=== PATIENT | female | born 1955 | race Caucasian/White ===

== ENCOUNTER 2018-05-24 12:34 | Emergency (ER) | payer MEDICAID, OTHER ==
[2018-05-24 12:51] VITALS: BMI 31.1
[2018-05-24 12:54] VITALS: BP 103/70; PULSE 90; TEMP 98.5; O2SAT 97
[2018-05-24] MEDS ORDERED: Enoxaparin 40 mg Syringe SC STA (13:13)
--- NOTE | 2018-05-24 13:16 | C.PDOC ---
History Of Present Illness 62 year old female presents to the ER with a complaint of new onset bilateral leg swelling since yesterday. Denies trauma, chest pain, SOB, KENNEDY, or PMHx. NEW ONSET B/L LEG SWELLING SINCE YEST. NO TRAUMA. DENIES CP, SOB, KENNEDY. DENIES PMH EXAM NAD NONTOXIC EXT MIN R>L LOWER LEG SWELL NONPITTING NONTEND. NO PALP MASS SKIN WNL REMAINDER NEG Time Seen by Provider: 05/24/18 13:09 Chief Complaint (Nursing): Lower Extremity Problem/Injury History Per: Patient History/Exam Limitations: no limitations Onset/Duration Of Symptoms: Days Current Symptoms Are (Timing): Still Present Recent travel outside of the [place]: No Past Medical History Reviewed: Historical Data, Nursing Documentation, Vital Signs Vital Signs: Last Vital Signs Temp 98.5 F 05/24/18 12:51 Pulse 90 05/24/18 12:51 Resp 18 05/24/18 12:51 BP 103/70 05/24/18 12:51 Pulse Ox 97 05/24/18 16:11 - Medical History PMH: No Chronic Diseases Surgical History: No Surg Hx Family History: States: Unknown Family Hx - Social History Hx Tobacco Use: No Hx Alcohol Use: No Hx Substance Use: No - Immunization History Hx Tetanus Toxoid Vaccination: No Hx Influenza Vaccination: No Hx Pneumococcal Vaccination: No Review Of Systems Except As Marked, All Systems Reviewed And Found Negative. Cardiovascular: Negative for: Chest Pain Respiratory: Negative for: Shortness of Breath, SOB with Excertion Musculoskeletal: Positive for: Other (Bilateral leg swelling) Physical Exam - Physical Exam Appears: Non-toxic, No Acute Distress Skin: Normal Color, Warm, Dry Head: Atraumatic, Normacephalic Eye(s): bilateral: Normal Inspection Oral Mucosa: Moist Chest: Symmetrical, No Tenderness Cardiovascular: Rhythm Regular Respiratory: Normal Breath Sounds, No Rales, No Rhonchi, No Wheezing Extremity: Normal ROM (x4), Capillary Refill (<2 seconds), Other (Minimal right greater than left lower leg swelling nonpitting and nontender. No palpable mass. ) Pulses: Left Dorsalis Pedis: Normal, Right Dorsalis Pedis: Normal Neurological/Psych: Oriented x3, Normal Speech, Normal Motor, Normal Sensation Gait: Steady ED Course And Treatment O2 Sat by Pulse Oximetry: 97 Progress - Re-Evaluation Re-evaluation Note: 05/24/18 16:11 POSSIBLE PT [facility]. NO RESPONSE VASC LAB. NO STUDY IN [facility] CONTACT NUMBER IN CHART DISCONNECTED. Disposition - Disposition Disposition: ELOPEMENT - ER ONLY Disposition Time: 16:13 Condition: UNKNOWN Forms: [facility] (Maltese) - Clinical Impression Clinical Impression: Leg swelling - Scribe Statement The provider has reviewed the documentation as recorded by the Scribe Rafael Herrera All medical record entries made by the Scribe were at my direction and personally dictated by me. I have reviewed the chart and agree that the record accurately reflects my personal performance of the history, physical exam, medical decision making, and the department course for this patient. I have also personally directed, reviewed, and agree with the discharge instructions and disposition.
[2018-05-24 16:16] VITALS: RESP 16
== END 2018-05-24 16:14 | disposition left against medical advice (07) ==
LOC: C.ER 12:34
DX: M79.89 Other specified soft tissue disorders (principal)
CPT/HCPCS: 96372; 99283; J1885

== ENCOUNTER 2018-07-02 11:30 | Emergency (ER) | payer OTHER ==
[2018-07-02 11:30] VITALS: BMI 31.1
[2018-07-02 11:44] VITALS: TEMP 98
--- NOTE | 2018-07-02 12:55 | VASCLAB ---
Date of service: 07/02/2018 PROCEDURE: Right Lower Extremity Venous Duplex Exam. HISTORY: right calf pain r/o DVT PRIORS: None. TECHNIQUE: Right common femoral, femoral, popliteal and posterior tibial, peroneal and great saphenous veins were evaluated. Flow was assessed with color Doppler, compressibility, assessment of phasic flow and augmentation response. Report prepared by LUIS ANTONIO Cage, RVT FINDINGS: RIGHT: 1. Common Femoral Vein: 1.1. Compressibility - Fully compressible: Thrombus - None: Flow - Phasic: Augmentation -Normal: Reflux - None. 2. Femoral Vein: 2.1. Compressibility - Fully compressible: Thrombus - None: Flow - Phasic: Augmentation -Normal: Reflux - None. 3. Popliteal Vein: 3.1. Compressibility - Fully compressible: Thrombus - None: Flow - Phasic: Augmentation -Normal: Reflux - None. 4. Posterior Tibial Vein: 4.1. Compressibility - Fully compressible: Thrombus - None: Flow - Phasic: Augmentation -Normal: Reflux - None. 5. Peroneal Vein: 5.1. Compressibility - Fully compressible: Thrombus - None: Flow - Phasic: Augmentation -Normal: Reflux - None. 6. Great Saphenous Vein: 6.1. Compressibility - Fully compressible: Thrombus -None: Flow - Phasic: Augmentation - Normal: Reflux - None. OTHER FINDINGS: IMPRESSION: No evidence of deep or superficial vein thrombosis of the right lower extremity with excellent venous flow. Normal valve function noted of the right side. Normal venous flow noted in the left common femoral vein.
[2018-07-02 13:36] VITALS: BP 112/79; PULSE 81; RESP 16; O2SAT 98
--- NOTE | 2018-07-02 13:36 | RAD ---
Date of service: 07/02/2018 PROCEDURE: Right Knee Radiographs. HISTORY: r/o fx COMPARISON: None. FINDINGS: BONES: Bone alignment and mineralization are normal. There is no acute displaced fracture or bone destruction. JOINTS: Normal. No osteoarthritis. JOINT EFFUSION: There is a moderate suprapatellar joint effusion. OTHER FINDINGS: None. IMPRESSION: No acute fracture or dislocation. Moderate suprapatellar joint effusion.
--- NOTE | 2018-07-02 16:14 | C.PDOC ---
History Of Present Illness 62 y/o female presents to ED with c/o pain to back of right knee and right calf pain for "several days". Patient is able to ambulate without difficulty and denies trauma, fall, pain worsened with walked, recent travel, change in medication or any other complaints at this time. Time Seen by Provider: 07/02/18 11:47 Chief Complaint (Nursing): Lower Extremity Problem/Injury History Per: Patient History/Exam Limitations: no limitations Onset/Duration Of Symptoms: Days Current Symptoms Are (Timing): Still Present Past Medical History Reviewed: Historical Data, Nursing Documentation, Vital Signs Vital Signs: Last Vital Signs Temp 98 F 07/02/18 11:41 Pulse 81 07/02/18 13:35 Resp 16 07/02/18 13:35 BP 112/79 07/02/18 13:35 Pulse Ox 98 07/02/18 16:26 - Medical History PMH: No Chronic Diseases Surgical History: No Surg Hx Family History: States: No Known Family Hx - Social History Hx Tobacco Use: No Hx Alcohol Use: No Hx Substance Use: No - Immunization History Hx Tetanus Toxoid Vaccination: No Hx Influenza Vaccination: No Hx Pneumococcal Vaccination: No Review Of Systems Musculoskeletal: Positive for: Leg Pain. Negative for: Foot Pain Skin: Negative for: Rash, Bruising Neurological: Negative for: Weakness, Numbness Physical Exam - Physical Exam Appears: Non-toxic, No Acute Distress Skin: Warm, Dry, No Rash Head: Atraumatic, Normacephalic Eye(s): bilateral: Normal Inspection Oral Mucosa: Moist Extremity: Tenderness (behind right knee), No Calf Tenderness, Capillary Refill (<2 seconds), No Deformity Pulses: Right Dorsalis Pedis: Normal Neurological/Psych: Oriented x3, Normal Motor, Normal Sensation ED Course And Treatment O2 Sat by Pulse Oximetry: 98 (RA) Pulse Ox Interpretation: Normal Disposition - Disposition Referrals: Aaron Uribe MD [Medical Doctor] - Disposition: HOME/ ROUTINE Disposition Time: 13:10 Condition: GOOD Additional Instructions: VANESA FREY, thank you for letting us take care of you today. Your provider was Eric Bearden DO and you were treated for RIGHT LEG PAIN. The emergency medical care you received today was directed at your acute symptoms. If you were prescribed any medication, please fill it and take as directed. It may take several days for your symptoms to resolve. Return to the Emergency Department if your symptoms worsen, do not improve, or if you have any other problems. Please contact your doctor or call one of the physicians/clinics you have been referred to that are listed on the Patient Visit Information form that is included in your discharge packet. Bring any paperwork you were given at discharge with you along with any medications you are taking to your follow up visit. Our treatment cannot replace ongoing medical care by a primary care provider outside of the emergency department. Thank you for allowing the [facility] team to be part of your care today. Follow up with your primary doctor in 3-4 days for re-evaluation and further management. VANESA FREY, shashi por dejarnos atenderlo maria del carmen. Weaver proveedor fue Eric Passhaylee DO y usted fue tratado por DOLOR BURROUGHSA. La atencin m dica de emergencia que recibi hoy estaba dirigida a soheila sntomas agudos. Si le prescribieron algn medicamento, llnelo y tome segn las indicaciones. Soheila s ntomas pueden tardar varios valentino en resolverse. Regrese al Departamento de Emergencia si soheila sntomas empeoran, no mejoran o si tiene algn otro problema. Comunquese con weaver mdico o llame a volodymyr de los mdicos / clnicas a los que casanova sido referido que figura en el formulario de Informacin de visita del paciente que se incluye en weaver paquete de rosas. Traiga todos los documentos que recibi al momento del rosas junto con los medicamentos que est tomando en weaver visita de seguimiento. Nuestro tratamiento no puede reemplazar la atencin mdica en curso por un proveedor de atencin primaria fuera del departamento de emergencia. Shashi por permitir que el equipo de [facility] sea parte de weaver cuidado hoy. Gaye un seguimiento con weaver mdico de cabecera en 3-4 valentino para nicolas nueva evaluacin y nicolas administracin posterior. Prescriptions: Ibuprofen [Motrin] 600 mg PO Q6 PRN #20 tab PRN Reason: Pain, Moderate (4-7) Instructions: Knee Sprain (DC) Forms: Gen Discharge Inst Bulgarian, [facility] (Bulgarian) Print Language: SYRIAC - Clinical Impression Clinical Impression: Leg pain - Scribe Statement The provider has reviewed the documentation as recorded by the Joshuaibcierra Garcia All medical record entries made by the Joshuaibcierra were at my direction and personally dictated by me. I have reviewed the chart and agree that the record accurately reflects my personal performance of the history, physical exam, medical decision making, and the department course for this patient. I have also personally directed, reviewed, and agree with the discharge instructions and disposition.
== END 2018-07-02 13:35 | disposition home or self-care (01) ==
LOC: C.ER 11:30
DX: M79.604 Pain in right leg (principal)

== ENCOUNTER 2018-12-26 14:40 | Emergency (ER) | payer OTHER ==
[2018-12-26 15:06] VITALS: BMI 34.2
[2018-12-26 15:07] VITALS: BP 122/77; PULSE 93; RESP 18; TEMP 98.6; O2SAT 98
--- NOTE | 2018-12-26 15:51 | C.PDOC ---
History Of Present Illness 63-year-old female presents to the ED for evaluation of generalized body aches which began around two hours prior to arrival. Patient reports the pain is particularly to her bilateral knees, but she also has pain in her arms and back. Patient has not taken any medication for her pain. She denies fever, cough, runny nose, sore throat, nausea, vomiting, diarrhea and rash at this time. Time Seen by Provider: 12/26/18 15:09 Chief Complaint (Nursing): Lower Extremity Problem/Injury History Per: Patient History/Exam Limitations: no limitations Onset/Duration Of Symptoms: Hrs (2) Current Symptoms Are (Timing): Still Present Additional History Per: Patient Past Medical History Reviewed: Historical Data, Nursing Documentation, Vital Signs Vital Signs: Last Vital Signs Temp 98.6 F 12/26/18 15:05 Pulse 93 H 12/26/18 15:05 Resp 18 12/26/18 15:05 BP 122/77 12/26/18 15:05 Pulse Ox 98 12/26/18 15:05 - Medical History PMH: No Chronic Diseases Surgical History: No Surg Hx Family History: States: Unknown Family Hx - Social History Hx Tobacco Use: No Hx Alcohol Use: No Hx Substance Use: No - Immunization History Hx Tetanus Toxoid Vaccination: No Hx Influenza Vaccination: No Hx Pneumococcal Vaccination: No Review Of Systems Constitutional: Negative for: Fever, Chills ENT: Negative for: Nose Discharge, Throat Pain Respiratory: Negative for: Cough Gastrointestinal: Negative for: Nausea, Vomiting, Diarrhea Musculoskeletal: Positive for: Arm Pain, Back Pain, Other (generalized body aches, bilateral knee pain) Skin: Negative for: Rash Physical Exam - Physical Exam Appears: Non-toxic, No Acute Distress Skin: Normal Color, Warm, Dry Head: Atraumatic, Normacephalic Eye(s): bilateral: Normal Inspection Ear(s): Bilateral: Normal Nose: Normal, No Discharge Oral Mucosa: Moist Throat: Normal, No Erythema, No Exudate Neck: Supple Chest: Symmetrical, No Deformity, No Tenderness Cardiovascular: Rhythm Regular, No Murmur Respiratory: Normal Breath Sounds, No Rales, No Rhonchi, No Wheezing Extremity: Normal ROM, No Tenderness, Capillary Refill (less than 2 seconds ), No Deformity, No Swelling Neurological/Psych: Oriented x3, Normal Speech, Normal Cognition ED Course And Treatment O2 Sat by Pulse Oximetry: 98 (on RA ) Pulse Ox Interpretation: Normal Progress Note: Motrin PO given. On reassessment, patient is resting com fortably, showing no signs of distress and is stable for discharge. Patient is advised to follow up with her PMD within 1-2 days for further evaluation. Disposition Counseled Patient/Family Regarding: Diagnosis, Need For Followup, Rx Given - Disposition Referrals: [facility] [Outside] Disposition: HOME/ ROUTINE Disposition Time: 15:00 Condition: STABLE Additional Instructions: FOLLOW UP IN THE MEDICAL CLINIC IN 1-2 DAYS USE IBUPROFEN NEEDED DRINK PLENTY OF FLUIDS RETURN TO EMERGENCY ROOM IF YOUR SYMPTOMS BECOME WORSE SEGUIR EN LA CLNICA MDICA EN 1-2 OLIVEROS UTILICE IBUPROFEN NICHOLE SE NECESITE BEBER MUCHO LQUIDO VUELVA A LA [place] DE EMERGENCIA SI AMRIK SNTOMAS SE HACEN PEOR Prescriptions: Ibuprofen [Motrin Tab] 600 mg PO Q6 PRN #30 tab PRN Reason: fever/pain Instructions: Viral Syndrome (DC), Joint Pain Forms: [employer] (Tajik) Print Language: UPPER SORBIAN - Clinical Impression Clinical Impression: Arthralgia, Viral syndrome - Scribe Statement The provider has reviewed the documentation as recorded by the Scribe (Eva Brewer) Provider Attestation: All medical record entries made by the Scribe were at my direction and personally dictated by me. I have reviewed the chart and agree that the record accurately reflects my personal performance of the history, physical exam, medical decision making, and the department course for this patient. I have also personally directed, reviewed, and agree with the discharge instructions and disposition.
== END 2018-12-26 15:56 | disposition home or self-care (01) ==
LOC: C.ER 14:40
DX: B34.9 Viral infection, unspecified (principal); M25.561 Pain in right knee; M25.562 Pain in left knee